=== PATIENT | female | born 1970 | race Caucasian/White ===

== ENCOUNTER → 2017-03-09 | Outpatient (CLI) | payer OTHER | LOC: FIMAGING 11:41 | PROVIDERS: ATTEND Physician Assistant | DX: Z12.31 Encounter for screening mammogram for malignant neoplasm of breast (principal); N85.8 Other specified noninflammatory disorders of uterus; N83.202 Unspecified ovarian cyst, left side; N94.89 Other specified conditions associated with female genital organs and menstrual cycle | CPT/HCPCS: G0202 ==

== ENCOUNTER → 2018-04-11 | Outpatient (CLI) | payer OTHER | LOC: FIMAGING 14:45 | PROVIDERS: ATTEND Physician Assistant | DX: Z12.31 Encounter for screening mammogram for malignant neoplasm of breast (principal) ==

== ENCOUNTER → 2018-08-08 | Outpatient (CLI) | payer OTHER | LOC: FIMAGING 12:20 | PROVIDERS: ATTEND Physician Assistant | DX: N83.202 Unspecified ovarian cyst, left side (principal); R22.1 Localized swelling, mass and lump, neck ==

== ENCOUNTER → 2019-05-16 | Outpatient (CLI) | payer OTHER | LOC: FIMAGING 13:38 ==